=== PATIENT | male | born 2000 | race Caucasian/White ===

== ENCOUNTER 2024-01-26 21:33 | Emergency (ER) | payer BC, SELFPAY ==
[2024-01-26 21:40] VITALS: BP 109/71; PULSE 78; TEMP 36.9; O2SAT 97; BMI 18.8
--- NOTE | 2024-01-26 22:22 | ED_ITS ---
HPI - Fever General Chief Complaint: Fever Stated Complaint: FEVER Time Seen by Provider: 01/26/24 21:38 Source: patient Mode of arrival: walk-in Limitations: no limitations History of Present Illness HPI Narrative: This 23-year-old male presents for evaluation of 1 day of fevers, chills, headache, sore throat and bodyaches. He took some cough and cold medicine prior to arrival. He has some mild nausea but has not vomited. He denies any chest pain or shortness of breath. He denies any sick contacts. He does not smoke. He denies any urinary symptoms. He does not have flank pain but states back pain is part of his body aches. He has no lower extremity pain or swelling. He has no skin rash or neck pain. Related Data Home Medications ?Medication ?Instructions ?Recorded ?Confirmed escitalopram oxalate 5 mg tablet 5 mg PO DAILY 01/26/24 01/26/24 Allergies Allergy/AdvReac Type Severity Reaction Status Date / Time amoxicillin Allergy Hives Verified 01/26/24 21:39 Review of Systems ROS Status of ROS 10 or more systems reviewed and unremark able except as noted in history and below PFSH PFSH Social History Little interest or pleasure in doing things: not at all Feeling down, depressed, or hopeless: not at all Exam Narrative Exam Narrative: Vital signs and Nursing Notes reviewed: Patient is afebrile with a normal pulse, normal blood pressure, he is not hypoxic with pulse ox of 97% on room air General: Nontoxic, mildly ill-appearing thin male, no respiratory distress HEENT: Normocephalic atraumatic, mucous membranes are moist and pink, eyes are clear, normal conjunctiva, vision is grossly intact, posterior pharynx is erythematous and boggy Chest: Lungs are clear to auscultation with good air entry, there is no wheezing rhonchi or rales appreciated no accessory muscle use, patient is speaking in complete sentences-no chest wall tenderness to palpation CVS: Regular rate and rhythm S1-S2, no murmurs rubs or gallops, pulses are brisk and equal bilaterally ABD: Soft, nondistended, nontender, no rebound guarding or rigidity, bowel sounds are normal, no pulsatile masses appreciated Extremities: Moving all extremities, no lower extremity tenderness or swelling noted, negative Homans' sign, pulses are brisk and equal bilaterally Skin: Normal in appearance without rash,pallor, petechiae or purpura Neuro: No focal deficits Constitutional Vital Signs, click to edit/add: Last Vital Signs Temp 98.4 F 01/26/24 21:40 Pulse 78 01/26/24 21:40 Resp 18 01/26/24 21:40 BP 109/71 01/26/24 21:40 Pulse Ox 97 01/26/24 21:40 O2 Del Method Room Air 01/26/24 21:40 Course Vital Signs Vital signs: Vital Signs Temperature 98.4 F 01/26/24 21:40 Pulse Rate 78 01/26/24 21:40 Respiratory Rate 18 01/26/24 21:40 Blood Pressure 109/71 01/26/24 21:40 Pulse Oximetry 97 01/26/24 21:40 Oxygen Delivery Method Room Air 01/26/24 21:40 Temperature 98.4 F 01/26/24 21:40 Pulse Rate 78 01/26/24 21:40 Respiratory Rate 18 01/26/24 21:40 Blood Pressure 109/71 01/26/24 21:40 Pulse Oximetry 97 01/26/24 21:40 Oxygen Delivery Method Room Air 01/26/24 21:40 MDM - Fever MDM Narrative Medical decision making narrative: This 23-year-old male presents for evaluation of 1 day of chills, body aches, headache, sore throat. He had taken some cough and cold medicine prior to arrival and was not noted to have a fever. His lungs were clear, abdomen is soft. He is not having any chest pain or shortness of breath. He was medicated with Zofran and ibuprofen. Strep, COVID-19 and influenza testing were negative. 2 view chest x-ray was reviewed by myself and was negative for acute findings. The results of the studies were discussed with the patient and his girlfriend. They then told me that last week they had gone on a trip with some other friends and they all contracted COVID-19 and tested positive for it. I explained to him that he is likely still recovering from COVID-19 despite his test results being negative. He was encouraged to drink plenty of fluids, use Zofran Tylenol and Motrin as needed for nausea or pain and return to the emergency department as needed for worsening symptoms. He declined the need for a note for work stating that he is mandated to work and has to work in the morning. Lab Data Labs: Lab Results 01/26/24 Range/Units 22:10 Influenza Type A Ag Negative Influenza Type B Ag Negative SARS-CoV-2 Ag (CV2AG) Negative (NEGATIVE) Streptococcus Screen Negative Discharge Plan Discharge Chief Complaint: Fever Clinical Impression: COVID-19 Patient Disposition: Home, Self-Care Time of Disposition Decision: 23:13 Condition: Good Prescriptions / Home Meds: No Action escitalopram oxalate 5 mg tablet 5 mg PO DAILY Print Language: Citizen Of [place] Instructions: COVID-19 (Coronavirus Disease 2019) (ED), How to Recover from COVID-19 at Home (ED) Referrals: Physician,Non-Staff, MD [Primary Care Provider] - 1 week Discharge Date/Time: 01/26/24 23:25
[2024-01-26] MEDS: ONDANSETRON 4 MG RAPDIS TABLET SL (22:30)
[2024-01-26] MEDS: ACETAMINOPHEN 325 MG TABLET 650 MG PO (22:30)
[2024-01-26] MEDS: IBUPROFEN 400 MG TABLET PO (22:30)
[2024-01-26 22:36] LABS: Internal Control Within Normal Limits; Strep A Antigen Screen Negative
[2024-01-26 22:42] LABS: Influenza Virus A Antigen Negative; Influenza Virus B Antigen Negative; Internal Control Within Normal Limits; SARS-CoV-2 Ag NEGATIVE (NEGATIVE)
--- NOTE | 2024-01-26 22:52 | XR_ITS ---
The [address] [address] Patient Name: DALE LAUGHLIN MRN: [id number] date: 2000 Sex: M Assigned Patient Location: ER Current Patient Location: Accession/Order Number: [id number] Exam Date: 01/26/2024 23:03 Report Date: 01/26/2024 23:31 At the request of: QUENTIN MARKER Procedure: XR chest 2V EXAMINATION:XR chest 2V INDICATION:fever COMPARISON:None TECHNIQUE:Frontal/lateral projections of the chest are submitted. FINDINGS: The cardiomediastinal silhouette is not enlarged. The pulmonary vascularity is within normal limits. The lungs are clear based on chest radiography. There is no costophrenic angle blunting. XR/XR chest 2V IMPRESSION: Unremarkable plain film examination of the chest. Electronically authenticated by: NISHA BUTT Date: 01/26/2024 23:31
== END 2024-01-26 23:25 | disposition home or self-care (01) ==
PROVIDERS: Emergency Provider Emergency Medicine
DX: U07.1 COVID-19 (principal)
CPT/HCPCS: 71046; 87070; 87804; 87811; 87880; 99285; Q0162